=== PATIENT | female | born 1970 | race Caucasian/White ===

== ENCOUNTER 2020-04-15 06:30 | Day surgery (SDC) | payer BC ==
[~2020-04-15 06:30] MED LIST: Dextrose 5%-0.45% NaCl 1,000 ML IV SCH; Midazolam 1 MG/ML 2 ML SDV ONE; Sodium Chloride 0.9% 10 ML Syringe FLUSH PRN; fentaNYL 100 MCG/2 ML SDV ONE
[2020-04-15] MEDS ORDERED: Midazolam 1 MG/ML 2 ML SDV IV ONE ×7 (06:31→08:01)
[2020-04-15] MEDS ORDERED: fentaNYL 100 MCG/2 ML SDV IV ONE ×3 (06:31→07:51)
--- NOTE | 2020-04-15 08:40 | OR ---
DATE: 04/15/2020 PROCEDURES: Total colonoscopy, narrow-band imaging, and cold snare polypectomy. INSTRUMENT USED: PCF-H190DL Olympus video colonoscope. PREMEDICATIONS: Fentanyl 100 mcg intravenous, Versed 4 mg intravenous, nasal O2 cannula. The procedure was done under pulse oximetry, BP recording, and demand equipment repairer. INDICATION: The patient with Hemoccult positive stools. Colonoscopic examination is done for detection of any polypoid lesions and removal, endoscopic hemostasis therapy if needed. DESCRIPTION OF PROCEDURE: Initial rectal exam was unremarkable. Rigid anoscopy was normal. The colonoscope was passed with ease up to the ileocecal area. Photographs were taken of the cecal area showing more than 1 cm sized sessile polyp at the area of ileocecal valve, photographs were taken. No bleeding was noted from any of the visualized areas at the commencement of the examination. The bowel preparation was found to be adequate, Marshall scale 2 in all the regions, total #6. In the proximal ascending colon, diminutive benign-appearing polyp was noted, photographs were taken. Cold snare polypectomy was done, the tissue was retrieved and sent for histopathology. No stricture. No vascular ectasia. No large isolated ulcerations seen. No evidence of diffuse inflammatory bowel disease in the form of friability, contact bleeding, or ulcerations. Probing the proximal sides of folds and flexures using adequate distention and clearing of the stool material, withdrawal of the scope was made, cecum to rectum time over 6 minutes. No bleeding was noted from any of the visualized areas at the completion of examination. IMPRESSION: Multiple colonic polyps. The patient tolerated the procedure well. [facility] /[id number]
== END 2020-04-15 10:20 | disposition home or self-care (01) ==
LOC: DL.ENDO 06:30
PROVIDERS: ATTEND Internal Medicine Gastroenterology
DX: D12.2 Benign neoplasm of ascending colon (principal); G35 Multiple sclerosis
CPT/HCPCS: 45385; J2250; J3010; J7042

== ENCOUNTER 2020-09-13 18:03 | Emergency (ER) | payer BC ==
[2020-09-13] MEDS ORDERED: Sodium Chloride 0.9% 10 ML Syringe FLUSH PRN (18:23)
--- NOTE | 2020-09-13 18:23 | EDM.PDOC ---
<Tory Bonilla - Last Filed: 09/13/20 18:30> ED HPI GENERAL MEDICAL PROBLEM - General Stated Complaint: POSSIBLE HERNIA Time Seen by Provider: 09/13/20 18:18 Source of Information: Reports: Patient History Limitations: Reports: No Limitations - History of Present Illness INITIAL COMMENTS - FREE TEXT/NARRATIVE: Pt is here for an umbilical hernia that is now hard and painful. She has noted it above her umbilicus for several years, but it has always been soft and non painful. Today she noted it was discolored an protruding on the top and left lower side as well, it is hard and very tender to palpation. No fevers or chills. She denies any nausea or vomiting. She has not had any previous abdominal surgeries. She had 2 soft bowel movements this afternoon, but noted they were dark green. No blood or mucous in the stool. - Related Data Allergies Allergy/AdvReac Type Severity Reaction Status Date / Time No Known Allergies Allergy Verified 09/13/20 18:47 Home Meds: Home Meds Calcium Phosphate Trib/Vit D3 [Calcium + Vitamin D3 Gummies] 1 tab PO DAILY 04/12/20 [History] Fingolimod HCl [Gilenya] 0.5 mg PO DAILY 04/12/20 [History] Gabapentin [Neurontin] 300 mg PO BEDTIME 04/12/20 [History] Multivitamin-Min/Iron/FA/Vit K [Multi-Day Plus Minerals Tablet] 1 tab PO DAILY 04/12/20 [History] [place]-3/DHA/Epa/Fish Oil [[place]-3 Fish Oil 1,000 MG Sfgl] 2,000 mg PO DAILY 04/12/20 [History] hydroCHLOROthiazide [Hydrochlorothiazide] 12.5 mg PO DAILY 04/12/20 [History] Cholecalciferol (Vitamin D3) [Vitamin D3] 1,000 units PO ASDIRECTED 04/14/20 [History] Past Medical History HEENT History: Reports: Impaired Vision Cardiovascular History: Reports: Hypertension Respiratory History: Reports: None Gastrointestinal History: Reports: None Genitourinary History: Reports: None FISCAL SERVICES MANAGER History: Reports: Musculoskeletal History: Reports: None Neurological History: Reports: MS Psychiatric History: Reports: None Endocrine/Metabolic History: Reports: None Hematologic History: Reports: None Immunologic History: Reports: None Oncologic (Cancer) History: Reports: None Dermatologic History: Reports: Eczema - Infectious Disease History Infectious Disease History: Reports: None - Past Surgical History Head Surgeries/Procedures: Reports: None HEENT Surgical History: Reports: None Cardiovascular Surgical History: Reports: None, Vascular Surgery Other Cardiovascular Surgeries/Procedures: recent varicose vein surg Respiratory Surgical History: Reports: None GI Surgical History: Reports: None Female Surgical History: Reports: None Endocrine Surgical History: Reports: None Neurological Surgical History: Reports: None Oncologic Surgical History: Reports: None Dermatological Surgical History: Reports: None Social & Family History - Caffeine Use Caffeine Use: Reports: Tea Caffeine Use Comment: occasional ED ROS GENERAL - Review of Systems Review Of Systems: Comprehensive ROS is negative, except as noted in HPI. ED EXAM, GI/ABD - Physical Exam Exam: See Below Exam Limited By: No Limitations General Appearance: Alert, WD/WN, No Apparent Distress Eyes: Bilateral: Normal Appearance Ears: Normal External Exam, Hearing Grossly Normal Nose: Normal Inspection, No Blood Throat/Mouth: Normal Inspection, Normal Voice, No Airway Compromise Neck: Normal Inspection, Supple Respiratory/Chest: No Respiratory Distress, Lungs Clear, Normal Breath Sounds, No Accessory Muscle Use Cardiovascular: Normal Peripheral Pulses, Regular Rate, Rhythm, No Murmur GI/Abdominal Exam: Normal Bowel Sounds, Soft, Tender (periumbilical), Hernia (umbilical, hard, non-reducible on initial exam). No: Guarding Rectal (Female) Exam: Deferred Back Exam: Normal Inspection, Full Range of Motion Extremities: Normal Inspection, Normal Range of Motion, Normal Capillary Refill Neurological: Alert, Oriented, Normal Cognition, Normal Gait, No Motor/Sensory Deficits Psychiatric: Normal Affect, Normal Mood Skin Exam: Warm, Dry, Intact, Normal Color, No Rash Lymphatic: No Adenopathy Course - Re-Assessments/Exams Free Text/Narrative Re-Assessment/Exam: Pt signed out to Batsheva Vieira NP 09/13/20 18:51 Departure - Departure Disposition: Home, Self-Care 01 Clinical Impression: Irreducible umbilical hernia Uterine fibroid Qualifiers: Uterine leiomyoma location: unspecified location Qualified Code(s): D25.9 - Leiomyoma of uterus, unspecified - Discharge Information Instructions: Umbilical Hernia, Adult, Uterine Fibroids, [id number] Forms: ED Department Discharge Additional Instructions: Follow-up this week with your primary care provider Encourage referral for FISCAL SERVICES MANAGER for findings on CT of large pelvic mass/exophytic fibroid causing pressure on the right ureter, hydronephrosis/hydroureter. Also surgical consult for umbilical hernia containing inflamed fat May use Tylenol and/or ibuprofen as directed for pain May use cold compress on the umbilical area Relax with knees up to take pressure off the abdominal wall. If pain intolerable, or if you develop fever, chills, further reddening and tenderness return to the ER or present to the ER in [place] <IshaBatsheva - Last Filed: 09/13/20 20:54> ED HPI GENERAL MEDICAL PROBLEM - History of Present Illness Onset: Gradual Course - Vital Signs Last Recorded V/S: Last Vital Signs Temp 98.5 F 09/13/20 20:22 Pulse 93 09/13/20 20:22 Resp 16 09/13/20 20:22 BP 159/98 H 09/13/20 20:22 Pulse Ox 100 09/13/20 20:22 - Orders/Labs/Meds Orders: Active Orders 24 hr Category Date Time Status Peripheral IV Care [RC] . DIRECTED Care 09/13/20 18:24 Active Sodium Chloride 0.9% [Saline Flush] Med 09/13/20 18:23 Active 10 ml FLUSH ASDIRECTED PRN Peripheral IV Insertion Adult [OM.PC] Stat Oth 09/13/20 18:23 Ordered Medication Orders Sodium Chloride (Sodium Chloride 0.9% 10 Ml Syringe) 10 ml FLUSH ASDIRECTED PRN PRN Reason: Keep Vein Open Last Admin: 09/13/20 18:39 Dose: 10 ml Documented by: BIPIN Labs: Laboratory Tests 09/13/20 09/13/20 09/13/20 Range/Units 18:35 18:35 18:35 WBC 5.2 (5.0-10.0) 10^3/uL RBC 4.16 L (4.2-5.4) 10^6/uL Hgb 13.9 (12.0-16.0) g/dL Hct 40.8 (37.0-47.0) % MCV 98.1 (80-100) fL MCH 33.4 (27.0-34.0) pg MCHC 34.1 (33.0-35.0) g/dL Plt Count 333 (150-450) 10^3/uL Neut % (Auto) 79.2 H (42.2-75.2) % Lymph % (Auto) 7.6 L (20.5-50.1) % [place] % (Auto) 11.8 H (2-8) % Eos % (Auto) 1.2 (1.0-3.0) % Baso % (Auto) 0.2 (0.0-1.0) % Sodium 142 (136-145) mmol/L Potassium 3.2 L (3.5-5.1) mmol/L Chloride 104 (98-107) mmol/L Carbon Dioxide 25 (21-32) mmol/L Anion Gap 16.2 H (7-13) mEq/L BUN 10 (7-18) mg/dL Creatinine 0.82 (0.55-1.02) mg/dL Est Cr Clr Drug Dosing 64.19 mL/min Estimated GFR (MDRD) > 60 BUN/Creatinine Ratio 12.2 (No establ ref range) Glucose 100 H (70-99) mg/dL Lactic Acid 1.1 (0.4-2.0) mmol/L Calcium 9.0 (8.5-10.1) mg/dL Total Bilirubin 0.7 (0.2-1.0) mg/dL AST 21 (15-37) U/L ALT 21 (14-59) U/L Alkaline Phosphatase 52 (46-116) U/L Total Protein 7.6 (6.4-8.2) g/dL Albumin 3.7 (3.4-5.0) g/dL Globulin 3.9 Albumin/Globulin Ratio 0.9 Urine Color (YELLOW) Urine Appearance (CLEAR) Urine pH (5.0-9.0) Ur Specific [place] (1.005-1.030) Urine Protein (NEGATIVE) Urine Glucose (UA) (NEGATIVE) Urine Ketones (NEGATIVE) Urine Occult Blood (NEGATIVE) Urine Nitrite (NEGATIVE) Urine Bilirubin (NEGATIVE) Urine Urobilinogen (0.2-1.0) mg/dL Ur Leukocyte Esterase (NEGATIVE) Urine RBC /HPF Urine WBC (0-5/HPF) /HPF Ur Epithelial Cells (NOT SEEN) /HPF Amorphous Sediment (NOT SEEN) /HPF Urine Bacteria (0-FEW/HPF) /HPF Urine Mucus (NOT SEEN) /LPF 09/13/20 Range/Units 19:00 WBC (5.0-10.0) 10^3/uL RBC (4.2-5.4) 10^6/uL Hgb (12.0-16.0) g/dL Hct (37.0-47.0) % MCV (80-100) fL MCH (27.0-34.0) pg MCHC (33.0-35.0) g/dL Plt Count (150-450) 10^3/uL Neut % (Auto) (42.2-75.2) % Lymph % (Auto) (20.5-50.1) % [place] % (Auto) (2-8) % Eos % (Auto) (1.0-3.0) % Baso % (Auto) (0.0-1.0) % Sodium (136-145) mmol/L Potassium (3.5-5.1) mmol/L Chloride (98-107) mmol/L Carbon Dioxide (21-32) mmol/L Anion Gap (7-13) mEq/L BUN (7-18) mg/dL Creatinine (0.55-1.02) mg/dL Est Cr Clr Drug Dosing mL/min Estimated GFR (MDRD) BUN/Creatinine Ratio (No establ ref range) Glucose (70-99) mg/dL Lactic Acid (0.4-2.0) mmol/L Calcium (8.5-10.1) mg/dL Total Bilirubin (0.2-1.0) mg/dL AST (15-37) U/L ALT (14-59) U/L Alkaline Phosphatase (46-116) U/L Total Protein (6.4-8.2) g/dL Albumin (3.4-5.0) g/dL Globulin Albumin/Globulin Ratio Urine Color Light yellow (YELLOW) Urine Appearance Clear (CLEAR) Urine pH 6.5 (5.0-9.0) Ur Specific [place] 1.015 (1.005-1.030) Urine Protein Negative (NEGATIVE) Urine Glucose (UA) Negative (NEGATIVE) Urine Ketones Trace H (NEGATIVE) Urine Occult Blood Trace-intact H (NEGATIVE) Urine Nitrite Negative (NEGATIVE) Urine Bilirubin Negative (NEGATIVE) Urine Urobilinogen 0.2 (0.2-1.0) mg/dL Ur Leukocyte Esterase Negative (NEGATIVE) Urine RBC 0-5 /HPF Urine WBC 0-5 (0-5/HPF) /HPF Ur Epithelial Cells Rare (NOT SEEN) /HPF Amorphous Sediment Rare (NOT SEEN) /HPF Urine Bacteria Rare (0-FEW/HPF) /HPF Urine Mucus Not seen (NOT SEEN) /LPF Meds: Medications Generic Name Dose Route Start Last Admin Trade Name Steph PRN Reason Stop Dose Admin Sodium Chloride 10 ml 09/13/20 18:23 09/13/20 18:39 Sodium Chloride 0.9% 10 Ml Syringe FLUSH 10 ml ASDIRECTED PRN Administration Keep Vein Open Discontinued Medications Generic Name Dose Route Start Last Admin Trade Name Freq PRN Reason Stop Dose Admin Iopamidol 100 ml 09/13/20 19:09 09/13/20 19:10 Iopamidol 612 Mg/Ml 100 Ml Bottle IVPUSH 09/13/20 19:10 75 ml ONETIME ONE Administration - Re-Assessments/Exams Free Text/Narrative Re-Assessment/Exam: 09/13/20 20:51 Discussed patient case with Dr. Douglass, Surgeon at [facility] who states the hernia is filled with fat, no bowel is at risk at this point. States the surgery would be based on intractable pain of the patient. States if she would like to present to ER at [facility] he would see her for surgery, or she can follow-up with the surgical consult. States the patient can use a cold compress on the umbilical area to shrink the inflammation, relax with the knees up to take pressure off the abdominal wall. Other findings as far as lab work and on the CT results were discussed with the patient. Patient highly encouraged to follow-up with her primary care provider to have a pelvic ultrasound performed and referral to FISCAL SERVICES MANAGER. Patient and family in the room state understanding. 09/13/20 20:54 At this point patient plans to go home and try the things encouraged as above, and follow-up with her primary care provider. Patient states she will return to the ER with any further problems. Departure - Departure Time of Disposition: 20:35 Condition: Good - Discharge Information *PRESCRIPTION DRUG MONITORING PROGRAM REVIEWED*: No *COPY OF PRESCRIPTION DRUG MONITORING REPORT IN PATIENT SIMON: No Sepsis Event Note (ED) - Focused Exam Vital Signs: Vital Signs Temp Pulse Resp BP Pulse Ox 09/13/20 20:22 98.5 F 93 16 159/98 H 100 07/05/21 18:21 98.6 F 91 16 164/91 H 100
[2020-09-13 19:06] LABS: ANION GAP 16.2 mEq/L (7-13); CHLORIDE,CL 104 mmol/L (98-107); SODIUM,NA 142 mmol/L (136-145)
[2020-09-13] MEDS ORDERED: Iopamidol 612 MG/ML 100 ML Bottle IVPUSH ONE (19:09)
--- NOTE | 2020-09-13 19:44 | CT ---
PROCEDURE INFORMATION: Exam: CT Abdomen And Pelvis With Contrast Exam date and time: 09/13/2020 6:54 PM Age: 50 years old Clinical indication: Abdominal pain; Localized; Other: Umbilical; Additional info: Umbilical hernia TECHNIQUE: Imaging protocol: Computed tomography of the abdomen and pelvis with contrast. Total images: 695 Radiation optimization: All CT scans at this facility use at least one of these dose optimization techniques: automated exposure control; mA and/or kV adjustment per patient size (includes targeted exams where dose is matched to clinical indication); or iterative reconstruction. Contrast material: ISOVUE 300; Contrast volume: 75 ml; Contrast route: INTRAVENOUS (IV); COMPARISON: US Venous Doppler Lwr Ext Lt 04/13/2020 10:37 AM FINDINGS: Liver: See "Soft tissues" finding. Gallbladder and bile ducts: Gallbladder is slightly contracted. Two gallstones identified 1 near the fundus and 1 in the region of the neck of the gallbladder. Pancreas: Normal. No ductal dilation. Spleen: Normal. No splenomegaly. Adrenal glands: 2.2 cm left adrenal nodule. Additional 2.4 cm fluid attenuation right adrenal nodule. Kidneys and ureters: Mild right hydronephrosis and hydroureter to the level of the pelvis/pelvic mass. Minimal fullness of the left ureter. Stomach and bowel: Unremarkable. No obstruction. No mucosal thickening. Appendix: No evidence of appendicitis. Intraperitoneal space: Unremarkable. No free air. No significant fluid collection. Vasculature: Unremarkable. No abdominal aortic aneurysm. Lymph nodes: Unremarkable. No enlarged lymph nodes. Urinary bladder: Unremarkable as visualized. Reproductive: Large 10.4 by 9.8 by 10 cm heterogeneous mass appearing to extend off the superior aspect of the uterus. May displace the endometrium posteriorly and to the left. Bones/joints: Unremarkable. No acute fracture. Soft tissues: 1.9 cm cyst within the liver near the diaphragm. There are a few other too small to characterize liver hypodensities possibly tiny cysts. There is a complex umbilical hernia containing fat. Some inflammation/fat stranding within the hernia sac. Just superior to this there is an additional tiny midline abdominal wall hernia containing a small amount of fat. IMPRESSION: 1. Umbilical hernia containing inflamed fat. Findings suggest the possibility of incarcerated hernia. Correlate. There is an additional tiny midline abdominal wall hernia just superior to this containing fat. 2. Large 10.4 x 10 x 9.8 cm pelvic mass probably a large exophytic fibroid. Correlation with future ultrasound or pelvic MRI may better characterize/evaluate. 3. Mild right hydronephrosis/hydroureter and to a lesser degree on the left likely on the basis of the large pelvic mass. 4. Distended gallbladder with at least 2 gallstones. Correlate. 5. 2.2 cm solid left adrenal nodule and fluid density nodule right adrenal gland. Nonspecific. If there are no old CTs to show long-term stability, suggest future dedicated adrenal mass CT or MRI for further evaluation. 6. See above for other details.
== END 2020-09-13 20:39 | disposition home or self-care (01) ==
LOC: DL.ED 18:03
DX: K42.0 Umbilical hernia with obstruction, without gangrene (principal); D25.9 Leiomyoma of uterus, unspecified; I10 Essential (primary) hypertension
CPT/HCPCS: 36415; 74177; 80053; 81001; 83605; 85025; 99284; Q9967